=== PATIENT | male | born 1985 | race Caucasian/White ===

== ENCOUNTER 2020-07-14 12:16 | Emergency (ER) | payer OTHER, SELFPAY ==
[2020-07-14 12:18] VITALS: BP 160/86; PULSE 86; RESP 16; TEMP 36.6; O2SAT 99; BMI 25.0
--- NOTE | 2020-07-14 13:09 | ED_ITS ---
HPI - General Adult General Chief complaint: General Medical Stated complaint: Swollen Gland Time Seen by Provider: 07/14/20 13:08 Source: patient Mode of arrival: ambulatory Limitations: no limitations History of Present Illness HPI narrative: Pt states swollen gland on right side of neck, admits to pain with swallowing, thinks he may have drank from a cup of someone who has strep. Denies recent ear, nose or throat infection. Denies fevers. MD complaint: sore throat Related Data Previous Rx's Medication Instructions Recorded amoxicillin 500 mg PO BID #20 cap 07/14/20 Allergies Allergy/AdvReac Type Severity Reaction Status Date / Time No Known Allergies Allergy Verified 07/14/20 12:22 [No Known Allergies*] Review of Systems Review of Systems: see [facility] Social History Social History Advance Directives: No Advance Directives Information Provided: No Physical Exam Vital Signs: Vital Signs: Last Vital Signs Temp 97.8 F 07/14/20 12:18 Pulse 86 07/14/20 12:18 Resp 16 07/14/20 12:18 BP 160/86 H 07/14/20 12:18 Pulse Ox 99 07/14/20 12:18 Body Mass Index 25.0 Const: General: cooperative, healthy appearing, comfortable, no acute distress and well developed Nutritional Appearance: average body habitus Orientati on/consciousness: patient oriented x3 Limitations: no limitations HENMT: Head: Yes normal to inspection and Yes normocephalic Ears: external ears normal General nose exam: Normal external nose present Face and sinus: Yes normal facial exam and Yes face symmetric Mouth: Normal oral and palatal mucosa present Teeth and gingiva: dentition normal Throat: Yes posterior oropharynx abnormal (erythema with exudate) Eyes: General: appearance normal, both eyes and all related structures EOM: EOMs intact bilaterally Neck: Neck: Yes normal visual inspection, Yes full ROM, Yes no lymphadenopathy, Yes trachea midline, Yes supple and No anterior neck swelling Thyroid: Thyroid normal Resp: Effort & Inspection: normal respiratory effort and able to speak in complete sentences Neuro: General: patient oriented x3 Course Course Course Narrative: 35yo male with no sig past med hx thinks he may have shared a cup with someone with strep, has pain with swallowing, will get rapid strep. Discharge Plan Discharge Clinical Impression: Strep pharyngitis Patient Disposition: Home, Self-Care Instructions: Strep Throat (ED) Prescriptions: New amoxicillin 500 mg capsule 500 mg PO BID Qty: 20 RF: 0
== END 2020-07-14 13:58 | disposition home or self-care (01) ==
LOC: HO.ED 13:27
PROVIDERS: Emergency Provider Emergency Medicine Emergency Medical Services
DX: J02.0 Streptococcal pharyngitis (principal); M54.2 Cervicalgia
CPT/HCPCS: 87071; 87880; 99283

== ENCOUNTER 2020-10-02 10:27 | Emergency (ER) | payer OTHER, SELFPAY ==
[2020-10-02 11:17] VITALS: BP 132/80; PULSE 88; RESP 16; TEMP 37.2; O2SAT 100; BMI 25.0
[2020-10-02 11:53] VITALS: BP 132/80; PULSE 88; RESP 16; TEMP 37.2; O2SAT 100
--- NOTE | 2020-10-02 12:19 | ED.GENADULT ---
HPI - General Adult General Chief complaint: General Medical Stated complaint: SORE THROAT Time Seen by Provider: 10/02/20 11:37 Source: patient Mode of arrival: ambulatory Limitations: no limitations History of Present Illness HPI narrative: Patient tells me 2 days ago he that he has COVID shot. He tells me since then he has had fatigue, body aches, sore throat with tactile temps. He does have a history of strep pharyngitis and feels like these symptoms are similar. Here seeking test. Onset (ago): day(s) Related Data Previous Rx's Medication Instructions Recorded amoxicillin 500 mg PO BID #20 cap 07/14/20 amoxicillin 500 mg PO BID #21 cap 10/02/20 ibuprofen 600 mg PO Q8H PRN #20 tab 10/02/20 Allergies Allergy/AdvReac Type Severity Reaction Status Date / Time No Known Allergies Allergy Verified 07/14/20 12:22 [No Known Allergies*] Review of Systems Review of Systems: Yes all other systems are reviewed and are negative Constitutional: Constitutional: Reports no additional constitutional complaints, Reports body ache(s), Denies chills, Reports fever(s) (tactile ), Denies headache(s), Reports malaise and Denies weakness Eyes: Eyes: Reports no additional eye complaints and Denies change in vision ENT: Reports system reviewed and no additional complaints, except as documented, Denies dizziness, Denies headache(s), Denies nasal congestion, Denies nasal discharge, Denies neck pain and Reports sore throat Cardiovascular: Cardiovascular: Reports no additional cardiovascular complaints, Denies chest pain, Denies leg edema and Denies dyspnea Respiratory: Respiratory: Reports no additional respiratory complaints, Denies cough and Denies dyspnea Gastrointestinal: Gastrointestinal: Reports no additional gastrointestinal complaints, Denies abdominal pain, Denies diarrhea, Denies nausea and Denies vomiting Genitourinary: Genitourinary: Denies urinary incontinence Musculoskeletal: Musculoskeletal: Reports no additional musculoskeletal complaints, Denies back pain, Denies arthralgias, Denies joint swelling, Denies neck pain, Denies numbness and Denies tingling Integumentary/Breasts: Skin/Breast: Reports system reviewed and no additional complaints, except as docu and Denies rash Neurologic: Reports system reviewed and no additional complaints, except as documented, Denies Abnormal speech present, Denies dizziness, Denies headache(s), Denies numbness, Denies tingling and Denies weakness PMFSH Past Medical History Attestation statement: The following information was validated with the patient. Source: old records reviewed and nursing notes reviewed Social History Social History Alcohol intake: current Alcohol intake frequency: a few times a week Smoked in Last 30 Days: No Use of substances other than those prescribed or required for medical reasons: No Advance Directives: No Advance Directives Information Provided: No Physical Exam Vital Signs: Vital Signs: Last Vital Signs Temp 98.9 F 10/02/20 11:53 Pulse 88 10/02/20 11:53 Resp 16 10/02/20 11:53 BP 132/80 10/02/20 11:53 Pulse Ox 100 10/02/20 11:53 Body Mass Index 25.0 Const: General: cooperative, healthy appearing, comfortable and no acute distress Orientation/consciousness: patient oriented x3 Limitations: no limitations HENMT: Head: Yes normal to inspection Ears: hearing grossly normal bilaterally General nose exam: Normal external nose present Face and sinus: Yes normal facial exam Mouth: Normal oral and palatal mucosa present Throat: Yes uvula midline, Yes abnormal tonsil (Bilateral tonsillar erythema and swelling. No exudate) and No peritonsillar mass Eyes: General: appearance normal, both eyes and all related structures Pupils: Equal, round and reactive pupils present Neck: Neck: Yes normal visual inspection Chest: Chest palpation & inspection: normal inspection of the chest Resp: Effort & Inspection: normal respiratory effort Auscultation: clear to auscultation bilaterally Cardio: Rate: regular rate Rhythm: regular rhythm Peripheral pulses: Peripheral pulses 2+ throughout GI: Inspection: Yes normal to inspection Palpation (GI): Soft to palpation and nontender Auscultation: normal bowel sounds Back/Spine/Pelvis: Thoracic/Lumbar Spine: thoracic and lumbar spine normal to inspection Skin: General skin exam: no rashes or lesions noted Neuro: General: patient oriented x3, no focal motor deficits and normal sensation to monofilament Cranial nerves: Yes Equal, round and reactive pupils present Cognition (Neuro): normal cognition Speech: No Abnormal speech present Gait exam (Neuro): Normal gait present Motor exam (neuro): 5/5 motor strength present throughout Extrem: General: Yes normal to inspection Course Course Course Narrative: 35-year-old male here with complaints of tactile temps, body aches, sore throat and malaise x2 days. Did have COVID shot 2 days ago and thought this may be causing his symptoms however has a history of strep pharyngitis and is also concerned that he may have this. Rapid strep sent. 1300-rapid strep positive. Will treat with amoxicillin times 10 days. Reviewed findings with the patient. Reviewed worrisome signs symptoms of when to return to the emergency department. Comfortable discharge home. Medical Decision Making Medical Records Medical records reviewed: Yes I reviewed the patient's medical records. Lab Data Lab results reviewed: Yes I reviewed the patient's lab results. Discharge Plan Discharge Clinical Impression: Acute streptococcal pharyngitis Patient Disposition: Home, Self-Care Instructions: Pharyngitis (ED) Additional Instructions: Start antibiotics as soon as possible Increase fluids, rest Change toothbrush after 2 doses of antibiotics Prescriptions: New amoxicillin 500 mg capsule 500 mg PO BID Qty: 21 RF: 0 ibuprofen 600 mg tablet 600 mg PO Q8H PRN (Reason: pain) Qty: 20 RF: 0 No Action amoxicillin 500 mg capsule 500 mg PO BID Qty: 20 RF: 0 Referrals: Physician,None [Primary Care Provider] - 2 days Stand Alone Forms: Work/School Release Interventions: ED Discharge Assessment Last Done: 10/02/20 12:44 Discharge Date/Time: 10/02/20 12:44
== END 2020-10-02 12:44 | disposition home or self-care (01) ==
PROVIDERS: Emergency Provider Emergency Medicine Emergency Medical Services
DX: J02.0 Streptococcal pharyngitis (principal)
CPT/HCPCS: 87880; 99283; 99284

== ENCOUNTER 2020-11-11 19:09 | Emergency (ER) | payer OTHER, SELFPAY ==
[2020-11-11 20:18] VITALS: BP 140/77; PULSE 87; RESP 16; TEMP 36.8; O2SAT 100; BMI 25.0
--- NOTE | 2020-11-11 21:16 | ED.URI ---
HPI - URI/Sore Throat General Chief Complaint: Upper Respiratory Symptoms Stated Complaint: Sore throat Time Seen by Provider: 11/11/20 21:16 Source: patient Mode of arrival: ambulatory History of Present Illness HPI Narrative: This is a 35-year-old male who presents with 3 days of worsening sore throat without cough, chills, but denies fevers/nausea/vomiting/ear pain. Related Data Previous Rx's Medication Instructions Recorded amoxicillin 500 mg PO BID #20 cap 07/14/20 amoxicillin 500 mg PO BID #21 cap 10/02/20 ibuprofen 600 mg PO Q8H PRN #20 tab 10/02/20 amoxicillin-pot clavulanate 1 tab PO Q12H 7 Days #14 tab 11/11/20 [Augmentin] Allergies Allergy/AdvReac Type Severity Reaction Status Date / Time No Known Allergies Allergy Verified 07/14/20 12:22 [No Known Allergies*] Review of Systems Review of Systems: Pertinent positives and negatives as stated in HPI 10 point review of systems is otherwise negative. PMFSH Past Medical History Source: nursing notes reviewed Medical History No active medical problems Social History Social History Alcohol intake: never Smoked in Last 30 Days: No Use of substances other than those prescribed or required for medical reasons: No Any prior treatment program specific to substance use: No Advance Directives: No Advance Directives Information Provided: Yes Physical Exam Vital Signs: Vital Signs: Last Vital Signs Temp 98.2 F 11/11/20 20:18 Pulse 87 11/11/20 20:18 Resp 16 11/11/20 20:18 BP 140/77 H 11/11/20 20:18 Pulse Ox 100 11/11/20 20:18 Body Mass Index 25.0 VITAL SIGNS: Reviewed. GENERAL: Well developed, well nourished, in no acute distress. HEAD: Normocephalic/atraumatic EYES: PERRLA, EOMI intact without pain EARS: Ext canals without abnormality, TMs non-bulging and non-erythematous NOSE: Nares patent bilateral OROPHARYNX: no oral lesions noted, posterior pharynx erythematous with noted tonsillar enlargement/erythema/exudates NECK: Supple, + adenopathy LUNGS: Normal breath sounds. No adventitious sounds or accessory muscle use. SpO2<100> CARDIOVASCULAR: Regular rate and rhythm without noted murmurs ABDOMEN: Soft, non-tender, non-distended with bowel sounds. SKIN: Inspection of the skin reveals no rashes NEUROLOGIC: Alert and oriented x 4. Course Course Course Narrative: This is a 35-year-old male with history and clinical presentation consistent with strep pharyngitis which was further corroborated by a positive rapid strep. Patient received initial antibiotics here in the emergency department and then was discharged with remaining course. Discharge Plan Discharge Clinical Impression: Strep pharyngitis Patient Disposition: Home, Self-Care Instructions: Strep Throat (ED) Additional Instructions: Do not hesitate to return to the emergency department should you develop any acute worsening of your symptoms. Prescriptions: New amoxicillin-pot clavulanate [Augmentin] 875-125 mg tablet 1 tab PO Q12H 7 Days Qty: 14 RF: 0 No Action amoxicillin 500 mg capsule 500 mg PO BID Qty: 21 RF: 0 ibuprofen 600 mg tablet 600 mg PO Q8H PRN (Reason: pain) Qty: 20 RF: 0 amoxicillin 500 mg capsule 500 mg PO BID Qty: 20 RF: 0 Referrals: Physician,None [Primary Care Provider] - 2 days Interventions: ED Discharge Assessment Last Done: 11/11/20 22:33 Discharge Date/Time: 11/11/20 22:35
[2020-11-11] MEDS: Ibuprofen 400 MG TABLET PO (22:01)
[2020-11-11] MEDS: Amoxicillin/Potassium Clav 875 MG TABLET PO (22:01)
[2020-11-11] MEDS: Acetaminophen 325 MG TABLET 975 MG PO (22:01)
== END 2020-11-11 22:35 | disposition home or self-care (01) ==
PROVIDERS: Emergency Provider Student in an Organized Health Care Education/Training Program
DX: J02.0 Streptococcal pharyngitis (principal); Z79.899 Other long term (current) drug therapy
CPT/HCPCS: 87880; 99283; 99284